=== PATIENT | male | born 1985 | race Caucasian/White ===

== ENCOUNTER 2023-03-24 14:15 | Outpatient (CLI) | payer OTHER ==
[2023-03-26 09:11] LABS: HSV 1 IGG TYPE SPEC <0.91 index (0.00-0.90); HSV 2 IGG TYPE SPEC <0.91 index (0.00-0.90)
== END 2023-03-24 14:30 | disposition home or self-care (01) ==
LOC: LAB.N 14:15
PROVIDERS: ATTEND Family Medicine
DX: N48.9 Disorder of penis, unspecified (principal)
CPT/HCPCS: 86695; 86696; 87255